=== PATIENT | male | born 1965 | race Caucasian/White ===

== ENCOUNTER 2016-09-27 20:33 | Emergency (ER) | payer OTHER ==
[~2016-09-27] VITALS: Ht 190.5 cm; Wt 149.6 kg
[~2016-09-27 20:33] MED LIST: NO ROUTINE MEDS
--- OUTSIDE RECORDS SUMMARY | 2016-09-27 20:37 | XMS REPORT | Continuity of Care Document ---
Author Author [facility] Organization [facility] Address Unknown Phone Unavailable Support Name Relationship Address Phone PIPO MAYES MD Caregiver [address] [place] [address] [phone] ELISABETH STEPHENS FACS, MD Caregiver [address] [place] [address] [place] [address] [phone] LILIANA BLAIR Next Of Kin [address] [place] [address] Insurance Providers Payer Name Policy Number Subscriber Name Relationship [facility] [id number] Jasmeet Blair 18 Self Advance Directives Directive Response Recorded Date/Time Dr Portillo Resuscitation Status Full Code 03/28/14 11:28am Resuscitation Documents on File No 03/29/14 7:44pm Chief Complaint and Reason for Visit Chief Complaint C SCOPE/TAKE DOWN OF END COLOSTOMY/REPAIR OF SAMMY Reason for Visit Colostomy care Colostomy hernia Problems Medical Problems Problem Onset Date Status Sepsis Unknown Active Leukocytosis Unknown Active Perirectal cellulitis Unknown Active Obesity, morbid, BMI 40.0-49.9 Unknown Active Hyponatremia Unknown Active Cellulitis of perineum Unknown Active Colostomy care 04/03/2014 Active Colostomy hernia 04/03/2014 Active Medications Medication Dose Route Sig Days/Qty Instructions Order Date Discontinued Date Status Ibuprofen 600 Mg PO Every 6 Hours PRN PAIN 14 Days 04/03/14 Active Social History Social History Problem Response Recorded Date/Time Smoking Status Never smoker 10/08/2013 12:10pm Chewing Tobacco Status No 03/28/2014 11:02am Hx Substance Use No 03/28/2014 11:02am Hx Alcohol Use Y OCC 03/28/2014 11:02am Has the pt used tobacco in the last 12 months No 03/29/2014 7:45pm Hospital Discharge Instructions Instructions: Care Instructions: Reason for Hospitalization: takedown colostomy and repair stomal hernia I was in the hospital because (patient own words): Colostomy takedown and hernia repair Discharge Diet: Regular Discharge Activity: Do not drive, operate machinery for 24 hours after surgery or while taking pain medication. No lifting more than 25 pounds for 4 weeks. Follow Up Appointments: Follow up with Dr. Stephens on April 10, 2014 at 3:15 pm Patient Instructions: May Shower No Bathing or swimming. Wound/Incision Care: Leave incision open to air. Reapply dressing as needed. Give FAUSTINO instructions Notify Physician If: 1. Call your surgeon if you are having problems relating to your surgery at [phone]. 2. Problems such as: Temp above 101.5 degrees You develop redness, excessive swelling of the incision, increasing pain or excessive foul smelling drainage. 3. If the office is closed, call [facility] at [phone] and have your Surgeon paged. Condition at time of discharge: Good Plan of Care Discharge Date 04/03/14 1:06pm Disposition 01 DISCHARGED HOME, SELF-CARE Instructions/Education Provided DI for Floyd-Saavedra Drains Prescriptions See Medications Section Functional Status Query Response Date Recorded Physical Hygiene Self April 03, 2014 12:05pm Disabilities None April 03, 2014 12:05pm Devices Used None April 03, 2014 12:05pm Dressing Self April 03, 2014 12:05pm Ambulation Self April 03, 2014 12:05pm Diet Self April 03, 2014 12:05pm Mental Status Alert Oriented April 03, 2014 12:05pm Disabilities None April 03, 2014 12:05pm Devices Used None April 03, 2014 12:05pm Physical Hygiene Self April 03, 2014 12:05pm Dressing Self April 03, 2014 12:05pm Ambulation Self April 03, 2014 12:05pm Diet Self April 03, 2014 12:05pm Allergies, Adverse Reactions, Alerts Allergen Type Severity Reaction Status Last Updated Penicillin Allergy Unknown RASH Active 03/28/14 Immunizations Name Given Type Hx Influenza Vaccination Y MARCH 2014 Historical Hx Pneumococcal Vaccination No Historical Hx Influenza Vaccination Y MARCH 2014 Historical Vital Signs Acute Vital Signs Vital Response Date/Time Temperature (Fahrenheit) 98.9 deg F (96.8 - 99.1) Temperature (Calculated Celsius) 37.30477 degrees C (36.0 - 37.3) Temperature Source Oral Pulse Rate (adult) 80 bpm (60 - 100) Respiratory Rate 16 breaths/min (10 - 20) O2 Sat by Pulse Oximetry 94 % (90 - 100) Oxygen Delivery Method Room Air Blood Pressure 116/82 mm Hg Blood Pressure Source Automatic Cuff Height 6 ft 3 in Weight 295 lb Body Mass Index 36.0 kg/m^2 Results Test Source Date Result Interp. Ref. Range Comments Alanine Aminotransferase (ALT/SGPT) October 16, 2013 5:15am 46 U/L N 21- 72 Albumin October 16, 2013 5:15am 1.9 G/DL L 3.5-5.0 Albumin/Globulin Ratio October 16, 2013 5:15am 0.7 RATIO L 1.1-2.2 Alkaline Phosphatase October 16, 2013 5:15am 61 U/L N 38-126 Anion Gap April 03, 2014 4:55am 8 MEQ/L N 5-15 Arterial Blood Base Excess October 12, 2013 4:30am 0.2 MMOL/L N -2.0-2.0 Arterial Blood HCO3 October 12, 2013 4:30am 24 MEQ/L N 22-26 Arterial Blood Oxygen Saturation October 12, 2013 4:30am 94.0 % L 95.0- 98.0 Arterial Blood Partial Pressure CO2 October 12, 2013 4:30am 33 MMHG L 34- 45 Arterial Blood Total CO2 October 12, 2013 4:30am 24.5 MEQ/L N 23-27 Arterial Blood pH October 12, 2013 4:30am 7.460 H 7.350-7.450 Arterial Blood pO2 at Patient Temp October 12, 2013 4:30am 66 MMHG L 80- 100 Aspartate Amino Transf (AST/SGOT) October 16, 2013 5:15am 29 U/L N 17-59 BUN/Creatinine Ratio April 03, 2014 4:55am 6 RATIO N 6-26 Band Neutrophils # March 30, 2014 4:45am 0.1 T/MM3 - Band Neutrophils % March 30, 2014 4:45am 1.0 % N 0-6 Basophils # (Auto) April 03, 2014 4:55am 0.0 T/MM3 N 0-0.2 Basophils (%) (Auto) April 03, 2014 4:55am 0.7 % N 0-2 Blood Gas Oxygen Percent Given October 11, 2013 7:17am 70 - Blood Urea Nitrogen April 03, 2014 4:55am 7.0 MG/DL DL 9-20 Calcium Level April 03, 2014 4:55am 9.3 MG/DL N 8.4-10.2 Calculated Osmolality April 03, 2014 4:55am 266 MOSM/KG N 261-280 Carbon Dioxide Level April 03, 2014 4:55am 26 MEQ/L N 22-30 Chemistry Specimen Hemolysis April 03, 2014 4:55am < 15 0-25 0-25: No Hemolysis.26-70: Slight Hemolysis - can falsely elevate K and Urine Protein. 71-285: Moderate Hemolysis - can falsely elevate K, Troponin I, CA 19-9, PTH, CSF GLucose, and Urine Protein, and can falsely decrease Phenytoin. 286-999: Gross Hemolysis - can falsely elevate K, Troponin I, CA 19-9, PTH, CSF Glucose, and Urine Protine, and can falsely decrease Phenytoin. Recommend specimen recollection. Chloride Level April 03, 2014 4:55am 105 MEQ/L N 98-107 Creatinine April 03, 2014 4:55am 1.1 MG/DL DN 0.8-1.5 Eosinophils # (Auto) April 03, 2014 4:55am 0.4 T/MM3 N 0-0.5 Eosinophils # (Manual) October 17, 2013 4:40am 0.3 T/MM3 N 0-0.5 Eosinophils % (Manual) October 17, 2013 4:40am 2.0 % N 0-4 Eosinophils (%) (Auto) April 03, 2014 4:55am 6.7 % H 0-4 Globulin October 16, 2013 5:15am 2.8 G/DL N 2.4-3.6 Glomerular Filtration Rate Calc April 03, 2014 4:55am 71 - Glucometer October 20, 2013 1:01pm 122 mg/dL H 75-110 Glucose Level April 03, 2014 4:55am 92 MG/DL N 75-110 Hematocrit April 03, 2014 4:55am 41.4 % N 41-53 Hemoglobin April 03, 2014 4:55am 13.0 GM/DL L 13.5-17.5 Hemoglobin A1c October 09, 2013 4:35am 5.2 % L 6-7 <6.0 NON-DIABETIC RANGE6.0-7.0 ADA THERAPEUTIC RANGE >7.0 ACTION SUGGESTED Hypochromasia October 11, 2013 4:00am 1+ - Icterus Index April 03, 2014 4:55am < 2 0-7 Immature Granulocyte # (Auto) April 03, 2014 4:55am 0.01 T/MM3 N 0.00- 0.03 Immature Granulocyte % (Auto) April 03, 2014 4:55am 0.2 % N 0.0-0.5 Lymphocytes # (Auto) April 03, 2014 4:55am 1.4 T/MM3 N 1-4.8 Lymphocytes # (Manual) March 30, 2014 4:45am 0.1 T/MM3 L 1-4.8 Lymphocytes % (Manual) March 30, 2014 4:45am 1.0 % L 23-45 Lymphocytes (%) (Auto) April 03, 2014 4:55am 22.4 % L 23-45 Magnesium Level October 16, 2013 5:15am 2.2 MG/DL N 1.6-2.3 Mean Corpuscular Hemoglobin April 03, 2014 4:55am 25.7 UUG L 26-34 Mean Corpuscular Hemoglobin Concent April 03, 2014 4:55am 31.4 GM/DL N 31-37 Mean Corpuscular Volume April 03, 2014 4:55am 81.8 UM3 N 80-100 Mean Platelet Volume April 03, 2014 4:55am 9.4 UM3 N 9.4-12.4 Monocytes # (Auto) April 03, 2014 4:55am 0.6 T/MM3 N 0-0.8 Monocytes # (Manual) March 30, 2014 4:45am 0.3 T/MM3 N 0-0.8 Monocytes % (Manual) March 30, 2014 4:45am 3.0 % N 0-9.0 Monocytes (%) (Auto) April 03, 2014 4:55am 9.6 % H 0-9.0 Neutrophils # (Auto) April 03, 2014 4:55am 3.7 T/MM3 N 1.8-7.7 Neutrophils # (Manual) March 30, 2014 4:45am 8.8 T/MM3 H 1.8-7.7 Neutrophils % (Manual) March 30, 2014 4:45am 95.0 % H 33-66 Neutrophils (%) (Auto) April 03, 2014 4:55am 60.4 % N 33-66 Ovalocytes October 11, 2013 4:00am 1+ - Oxygen Delivery Method (LAB) October 12, 2013 4:30am Room air - Platelet Count April 03, 2014 4:55am 223 T/MM3 N 130-400 Platelet Evaluation (Diff) October 11, 2013 4:00am Few - Poikilocytosis October 11, 2013 4:00am 1+ - Potassium Level April 03, 2014 4:55am 4.1 MEQ/L N 3.6-5 Prealbumin October 18, 2013 5:05am 8.8 MG/DL DL 17.6-36.0 Procalcitonin October 10, 2013 4:15am 33.06 NG/ML PH - PCT </=0.5 ng/mL - sepsis not likely;PCT >0.5 and </=2 ng/mL - sepsis possible; PCT >2 ng/mL - sepsis likely; PCT >/=10 ng/mL - systemic inflammatory response - sepsis or septic shock highly indicated. Prothromb Time International Ratio October 18, 2013 5:05am 1.28 H 0.86- 1.10 THERAPUTIC RANGE=2.00-3.00 FOR ANTI-THROMBOSIS THERAPUTIC RANGE=2.50- 3.50 FOR IMPLANTED VALVE RDW Standard Deviation April 03, 2014 4:55am 46.6 FL N 36.9-50.2 Random Gentamicin Level October 20, 2013 4:30am < 0.6 UG/ML 0-2 Red Blood Count April 03, 2014 4:55am 5.06 M/MM3 N 4.50-5.90 Sodium Level April 03, 2014 4:55am 139 MEQ/L N 134-144 Thyroid Stimulating Hormone (TSH) October 08, 2013 9:45am 2.30 MIU/L N 0.47-4.68 COMMENT BLOOD IN LAB Total Bilirubin October 16, 2013 5:15am 0.20 MG/DL N 0.20-1.30 Total Protein October 16, 2013 5:15am 4.7 G/DL L 6.3-8.2 Toxic Vacuolation October 08, 2013 9:15am 2+ - Turbidity April 03, 2014 4:55am < 20 0-20 Urine Bacteria October 08, 2013 4:28pm Trace H - Has specimen been collected/obtained? Y Urine Bilirubin October 08, 2013 4:28pm 1+ H - ICTO TEST NEGATIVE LB Urine Blood October 08, 2013 4:28pm 1+ H - Has specimen been collected/ obtained? Y Urine Collection Type October 08, 2013 4:28pm [place] - Has specimen been collected/obtained? Y Urine Color October 08, 2013 4:28pm [place] - Has specimen been collected/obtained? Y Urine Glucose (UA) October 08, 2013 4:28pm Negative - Has specimen been collected/obtained? Y Urine Ketones October 08, 2013 4:28pm Trace H - Has specimen been collected/obtained? Y Urine Leukocyte Esterase October 08, 2013 4:28pm Negative - Has specimen been collected/obtained? Y Urine Nitrite October 08, 2013 4:28pm Negative - Has specimen been collected/obtained? Y Urine Protein October 08, 2013 4:28pm 1+ H - Has specimen been collected/ obtained? Y Urine RBC October 08, 2013 4:28pm 0-1 /HPF - Has specimen been collected/obtained? Y Urine Specific [place] October 08, 2013 4:28pm 1.015 - Has specimen been collected/obtained? Y Urine Turbidity October 08, 2013 4:28pm Clear - Has specimen been collected/obtained? Y Urine Urobilinogen October 08, 2013 4:28pm >=8.0 EU/DL H - Has specimen been collected/obtained? Y Urine WBC October 08, 2013 4:28pm 0-1 /HPF - Has specimen been collected/obtained? Y Urine pH October 08, 2013 4:28pm 6.0 - Has specimen been collected/ obtained? Y Vancomycin Level Trough October 16, 2013 5:40pm 20.76 UG/ML H 15-20 Venous Blood Lactate October 08, 2013 9:15am 1.7 MMOL/L N 0.6-2.2 Vitamin B12 Level October 08, 2013 9:45am 236 PG/ML L 239-931 COMMENT BLOOD IN LAB White Blood Count April 03, 2014 4:55am 6.1 T/MM3 N 4.5-11.0 Blood Culture Blood October 08, 2013 9:15am NO GROWTH AFTER 5 DAYS Gram Stain Perineum October 09, 2013 6:30pm Gram Stain Buttock-Right October 09, 2013 3:15pm Procedures No known history of procedures. Encounters Encounter Location Date/Time Discharged Inpatient [facility] 03/29/14 11:40am Recent Diagnosis Colostomy care Colostomy hernia
--- OUTSIDE RECORDS SUMMARY | 2016-09-27 20:37 | XMS REPORT | Continuity of Care Document ---
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 Visit Date/Time Discharge Status Pt. Type Provider Facility Loc./Unit Complaint [id number] 10/20/2013 15:56:00 2013 15:36:00 DIS Inpatient Adrián Lau MD [facility] on [address]
[2016-09-27 20:51] LABS: BLOOD, URINE 3+ (NEGATIVE); COLOR,URINE PINK (YELLOW); LEUKOCYTE ESTERASE ,URINE NEGATIVE (NEGATIVE); NITRITE,URINE NEGATIVE (NEGATIVE); UROBILINOGEN,URINE 0.2 EU/DL (NORMAL)
[2016-09-27] MEDS ORDERED: NORMAL SALINE 1,000 ML IV ONE (20:54)
[2016-09-27] MEDS ORDERED: KETOROLAC 30mg/ml INJECTION IV ONE (21:00)
[2016-09-27] MEDS ORDERED: ONDANSETRON 4mg/2ml INJECTION IV ONE (21:00)
[2016-09-27] MEDS ORDERED: TAMSULOSIN 0.4 MG CAPSULE PO ONE (21:00)
--- NOTE | 2016-09-27 21:02 | NUR ---
CT PT TO CT [facility].
--- NOTE | 2016-09-27 21:12 | NUR ---
CT PT RETURNED.
[2016-09-27 21:13] LABS: WBC,URINE 0-1 /HPF (0-5)
[2016-09-27 21:15] LABS: BACTERIA,URINE TRACE (NEGATIVE)
--- NOTE | 2016-09-27 21:15 | NUR ---
DR DR MELARA AT BEDSIDE.
--- OUTSIDE RECORDS SUMMARY | 2016-09-27 21:15 | XMS REPORT | Continuity of Care Document ---
Author Author [facility] Organization [facility] Address Unknown Phone Unavailable Support Name Relationship Address Phone PIPO MAYES MD Caregiver [address] [place] [address] [phone] ELISABETH STEPHENS FACS, MD Caregiver [address] [place] [address] [place] [address] [phone] LILIANA BLAIR Next Of Kin [address] [place] [address] Insurance Providers Payer Name Policy Number Subscriber Name Relationship [facility] [id number] Jasmeet Blair 18 Self Advance Directives Directive [...] having problems relating to your surgery at [phone]. 2. Problems such as: Temp above 101.5 degrees You develop redness, excessive swelling of the incision, increasing pain or excessive foul smelling drainage. 3. If the office is closed, call [facility] at [phone] and have your Surgeon paged. Condition at [...] F (96.8 - 99.1) Temperature (Calculated Celsius) 37.85757 degrees C (36.0 - 37.3) Temperature Source [...] Y Urine Color October 08, 2013 4:28pm [place] - Has specimen been collected/obtained? Y Urine [...] Has specimen been collected/obtained? Y Urine Specific [place] October 08, 2013 4:28pm 1.015 - Has [...] procedures. Encounters Encounter Location Date/Time Discharged Inpatient [facility] 03/29/14 11:40am Recent Diagnosis Colostomy care Colostomy hernia
--- OUTSIDE RECORDS SUMMARY | 2016-09-27 21:15 | XMS REPORT | Continuity of Care Document ---
Author Author [facility] Organization [facility] Address Unknown Phone Unavailable Allergies Active Description [...] Status Pt. Type Provider Facility Loc./Unit Complaint [id number] 10/20/2013 15:56:00 2013 15:36:00 DIS Inpatient Adrián Lau MD [facility] on [address]
--- NOTE | 2016-09-27 21:20 | NUR ---
IVL/MEDS PT GIVEN INSTRUCTION REGARDING NS, ZOFRAN AND TORADOL. UNDERSTANDING VERBALIZED.
--- NOTE | 2016-09-27 21:22 | ERPDOC ---
Departure Disposition Decision Date: Sep 27, 2016 Disposition Decision Time: 22:05 Disposition: 01 DISCHARGED HOME, SELF-CARE Impression Impression Impression: Primary Impression: Ureterolithiasis Additional Impression: Hematuria Severity: Moderate Condition: Improved Seen By: Physician only Referrals: PIPO MAYES MD (Family) 1 Week Patient Instructions: Kidney Stones (ED) Problems/Meds/Labs Reviewed?: Yes Medications reviewed and manag: Yes Additional Instructions: You have a kidney stone that has almost passed. Take naproxen for pain and the flomax to help pass the stone. Use the norco only for pain not controlled with naproxen. Take zofran if needed for nausea. Drink lots of fluids and follow up with your doctor. Follow up care ordered?: Yes Mental Status: Alert, Oriented Scripts Tamsulosin HCl (Flomax) 0.4 Mg Capsule 0.4 MG PO HS for 14 Days, #14 CAP Take 1 capsule, by mouth, one time a day at BEDTIME. Prov: OCTOBERCARO DO 09/27/16 HPI - Male General Chief Complaint: Flank Pain Stated Complaint: LOWER LEFT BACK PAIN,FREQUENT URINATION Time Seen by Provider: 20:52 Source: patient Exam Limitations: no limitations HPI - Male Initial Comments 51yo man presents to the ER tonight for left flank pain. [facility] drinking diet coke and juice, so he drank a beer to flush himself out. This improved his urine, but now he has left flank pain with radiation into his groin. Pt has never had pain like this. 2 weeks ago, pt strained his back while moving furniture. He took some left over muscle relaxers, which helped his sx. He last took these 3-4 days ago, because sx were markedly improved. Occurred At: home Onset: Rapid Duration: 6-12 hrs Pain Scale: Now & Worst: 8/10 Severity/Quality: sharpness, stabbing Location: left flank Radiation: groin Activities at Onset: none Prior Genitourinary Problems: none Modifying Factors: IMPROVES WITH: lying down, other (Drinking), rest, WORSE WITH: movement, palpation Associated Symptoms: diaphoresis, nausea/vomiting, urinary frequency, DENIES: abdominal pain, dysuria, fever/chills, loss of bladder control, lower back pain , lumps, mass, nocturia, polyuria, swelling, syncope Hx of Similar Symptoms: No Allergies: Coded Allergies: Penicillins (Unverified Allergy, Unknown, RASH, 05/27/15) Past History Past Medical History Pt denies signifigant PMH Metabolic: other Integumentary: eczema, rashes Surgical History Joint: other Family History Family PMH: FOUND: CVA, hypertension Vaccines Hx Influenza Vaccination: Yes (MARCH 2014) Hx Pneumococcal Vaccination: No Social History Sexuality: other Review of Systems General: frequency, hematuria All other Systems All Other Systems: Reviewed and Negative Physical Exam General General Nourishment: well nourished, well developed, appears stated age, no acute distress, adult, obese General Body Habitus: well groomed Vitals and Pain First Documented Vital Signs Date Time Temp Pulse Resp B/P Pulse Ox O2 Delivery O2 Flow Rate FiO2 09/27/16 20:50 99.4 92 16 149/105 96 Room Air Weight: Kilograms: 149.600 Height (feet): 6 Height (inches): 3.00 Triage Pain Scale: RN VS reviewed by Provider: Yes Normal Exams: Head: Normocephalic w/o trauma Eyes: Pupils are PERRLA w/ EOMI, No scleral icterus, irritation ENMT: No facial trauma, nasal exudates, pharyngeal erythema Neck: Full range of motion, without adenopathy, JVD Lymphatic: No lymphadenopathy Musculoskeletal: No tenderness, or deformity noted, good range of motion Integumentary: No rashes, hives, or bruising noted Neurologic: Patient is alert, and oriented Psychiatric: Patient exhibits, appropriate attention Respiratory (brief) Respiratory: FOUND: clear all tapia, equal bilaterally, symmetrical, NOT FOUND : rales, wheezes Cardiovascular (brief) Cardiac: FOUND: regular rate, regular rhythm, NOT FOUND: click, gallop, murmur , pedal edema, peripheral edema, rub Capillary Refill: <2 sec Pulses: all distal extremities, equal, strong Abdomen (brief) Abdominal Brief: FOUND: bowel normo active x4, soft, NOT FOUND: distended, hepatosplenomegaly, pulsatile mass, tender Comments Oziel's pos on left. Differential Diagnoses Considering: Hematuria, Hernia, Pyelonephritis, Renal Colic, Ureteral Stone, UTI Progress Results/Orders Orders Procedure Category Date Status Time UA, LAB 09/27/16 Complete Dip&Micro(Complete) & 20:42 Cbc W/Auto LAB 09/27/16 Complete Diff-Reflex Manual 20:54 Bmp - Basic Metabolic LAB 09/27/16 Complete Panel 20:54 Ct Renal W/O Contrast CT 09/27/16 Taken 20:54 Iv Lock (Ed Only) EDM 09/27/16 Transmitted 20:54 Normal Saline (Normal PHA 09/27/16 Complete Saline Iv) 20:54 Ketorolac (Toradol) PHA 09/27/16 Complete 21:00 Tamsulosin (Flomax PHA 09/27/16 Complete 0.4 Mg) 21:00 Ondansetron Inj PHA 09/27/16 Complete (Zofran) 21:00 Hydrocodone/Apap PHA 09/27/16 Complete 5/325 Prepack (Verbena 5 22:15 Ondansetron Odt PHA 09/27/16 Complete (Prepack) (Zofran Odt 22:15 Lab Results Laboratory Tests Test 09/27/16 20:42 09/27/16 21:21 Urine Collection Type Voided-not cc-midstr Urine Color [place] Urine Turbidity Clear Urine pH 6.5 Urine Specific [place] <=1.005 Urine Protein Negative Urine Glucose (UA) Negative Urine Ketones Negative Urine Blood 3+ Urine Nitrite Negative Urine Bilirubin Negative Urine Urobilinogen 0.2EU/DL Urine Leukocyte Esterase Negative Urine RBC 10-20/HPF Urine WBC 0-1/HPF Urine Bacteria Trace Urine Culture Indicated Cult not indicated White Blood Count 6.1T/MM3 Red Blood Count 5.27M/MM3 Hemoglobin 17.2GM/DL Hematocrit 49.6% Mean Corpuscular Volume 94.1UM3 Mean Corpuscular Hemoglobin 32.6UUG Mean Corpuscular Hemoglobin Concent 34.7GM/DL RDW Standard Deviation 41.9FL Platelet Count 176T/MM3 Mean Platelet Volume 9.2UM3 Immature Granulocyte % (Auto) 0.3% Neutrophils (%) (Auto) 63.0% Lymphocytes (%) (Auto) 27.7% Monocytes (%) (Auto) 7.4% Eosinophils (%) (Auto) 0.8% Basophils (%) (Auto) 0.8% Absolute Immature Granulocyte (auto 0.02T/MM3 Absolute Neutrophils (auto) 3.9T/MM3 Absolute Lymphocytes (auto) 1.7T/MM3 Absolute Monocytes (auto) 0.5T/MM3 Absolute Eosinophils (auto) 0.1T/MM3 Absolute Basophils (auto) 0.1T/MM3 Turbidity < 20 Sodium Level 142MEQ/L Potassium Level 3.8MEQ/L Chloride Level 104MEQ/L Carbon Dioxide Level 21MEQ/L Anion Gap 17MEQ/L Blood Urea Nitrogen 12.0MG/DL Creatinine 1.2MG/DL Glomerular Filtration Rate Calc 64 BUN/Creatinine Ratio 10RATIO Glucose Level 98MG/DL Calculated Osmolality 273MOSM/KG Calcium Level 10.0MG/DL Icterus Index < 2 Chemistry Specimen Hemolysis 34 Medications Current ED Medications Sodium Chloride (Normal Saline IV) 1,000 ml @ 0 mls/hr Q0M ONCE IV Last administered on 09/27/16 21:27; Start 09/27/16 at 20:54; Stop 09/27/16 at 20:55; Status DC Ketorolac Tromethamine (Toradol) 30 mg O ONCE IV Last administered on 21:30; Start 09/27/16 at 21:00; Stop 09/27/16 at 21:01; Status DC Tamsulosin HCl (FLOMAX 0.4 mg) 0.4 mg O ONCE PO Last administered on 09/27/16 21:30; Start 09/27/16 at 21:00; Stop 09/27/16 at 21:01; Status DC Ondansetron HCl (Zofran) 4 mg O ONCE IV Last administered on 09/27/16 21:28; Start 09/27/16 at 21:00; Stop 09/27/16 at 21:01; Status DC Acetaminophen/ Hydrocodone Bitart (NORCO 5 (PrePack)) 1 pack O ONCE SENT HOME Last administered on 09/27/16 22:22; Start 09/27/16 at 22:15; Stop 09/27/16 at 22: 16; Status DC Ondansetron HCl (ZOFRAN ODT (PrePack)) 1 pack O ONCE SENT HOME Last administered on 09/27/16 22:22; Start 09/27/16 at 22:15; Stop 09/27/16 at 22:16; Status DC Progress Progress Pt with nephrolithiasis. Discussed dx, prognosis, and treatment with pt. F/u with PCM for referral to urology if necessary. Pt voiced understanding of treatment goals. CT CT : CT: Renal no contrast Interpretation: Abnormal (3mm stone at UVJ on left; mild hydronephrosis), Reviewed Written Report CARO MELARA DO Sep 27, 2016 21:22
[2016-09-27 21:30] LABS: BASOPHILS # (AUTO) 0.1 T/MM3 (0-0.2); BASOPHILS % (AUTO) 0.8 % (0-2); EOSINOPHILS # (AUTO) 0.1 T/MM3 (0-0.5); EOSINOPHILS % (AUTO) 0.8 % (0-4); HCT - HEMATOCRIT 49.6 % (41-53); HGB - HEMOGLOBIN 17.2 GM/DL (13.5-17.5); IMMATURE GRANULOCYTE # (AUTO) 0.02 T/MM3 (0.00-0.03); IMMATURE GRANULOCYTE % (AUTO) 0.3 % (0.0-0.5); LYMPHOCYTES # (AUTO) 1.7 T/MM3 (1-4.8); LYMPHOCYTES % (AUTO) 27.7 % (23-45); MEAN CORPUSCULAR HGB 32.6 UUG (26-34); MEAN CORPUSCULAR HGB CONC(MCHC 34.7 GM/DL (31-37); MEAN CORPUSCULAR VOLUME 94.1 UM3 (80-100); MEAN PLATELET VOLUME 9.2 UM3 (9.4-12.4); MONOCYTES # (AUTO) 0.5 T/MM3 (0-0.8); MONOCYTES % (AUTO) 7.4 % (0-9.0); NEUTROPHILS #(AUTO)-ABSOLUTE 3.9 T/MM3 (1.8-7.7); RED BLOOD COUNT 5.27 M/MM3 (4.50-5.90); WBC - WHITE BLOOD COUNT 6.1 T/MM3 (4.5-11.0)
[2016-09-27 21:36] LABS: ANION GAP 17 MEQ/L (5-15); BUN/CREATININE RATIO 10 RATIO (6-26); CHLORIDE 104 MEQ/L (98-107); CO2 - CARBON DIOXIDE 21 MEQ/L (22-30); CREATININE 1.2 MG/DL (0.8-1.5); GLOMERULAR FILTRATION RATE 64; GLUCOSE 98 MG/DL (75-110); POTASSIUM 3.8 MEQ/L (3.6-5); SODIUM 142 MEQ/L (134-144)
[2016-09-27] MEDS ORDERED: TAMS-1 PO (22:07)
[2016-09-27] MEDS ORDERED: ONDANSETRON ODT 4mg #3 (PrePack) SENT HOME ONE (22:15)
[2016-09-27] MEDS ORDERED: HYDROCODONE/APAP 5/325 (PrePack) SENT HOME ONE (22:15)
[2016-09-27 22:26] VITALS: BP 131/74; PULSE 78; RESP 12; TEMP 98.7; O2SAT 94
--- NOTE | 2016-09-27 22:26 | NUR ---
DEPART PT AMBULATORY TO LOBBY ACCOMPANIED BY SISTER.
--- NOTE | 2016-09-28 08:13 | DI ---
Indication: ITS.REASON: Flank pain PROCEDURE: CT RENAL W/O CONTRAST: Encounter: Initial Comparison: CT abdomen and pelvis dated October 20, 2013 Technique: Axial CT images were performed through the abdomen and pelvis without intravenous contrast. Coronal and sagittal two-dimensional reformats. Automated Exposure Control and Iterative Reconstruction dose reducing techniques were utilized. Findings: The lung bases are grossly clear. Liver shows mild fatty infiltration without contour deforming mass. The gallbladder, spleen, pancreas, adrenal glands and right kidney are within normal limits. No right renal or ureteral stones. There is a nonobstructing 2 mm stone at left ureterovesicular junction with mild hydroureter and hydronephrosis. Some perinephric stranding surrounding the left kidney. No abdominal or pelvic lymphadenopathy. Surgical anastomosis in the sigmoid area. Bladder is grossly normal. Appendix is normal. Fat-containing ventral hernias. Bone windows show probable bone islands in the left L5 vertebra and left aspect of the sacrum along with L1. Impression: Obstructing 2 mm left distal ureteral stone at the ureterovesicular junction. There is a preliminary report by [employer]. .
== END 2016-09-27 22:26 | disposition home or self-care (01) ==
LOC: ED 20:33
DX: N13.2 Hydronephrosis with renal and ureteral calculous obstruction (principal)
CPT/HCPCS: 74176; 80048; 81001; 85025; 96361; 96374; 96375; 99284; J1885; J2405; J7030

== ENCOUNTER → 2016-10-02 | Outpatient (CLI) | payer OTHER ==
[~2016-10-02] MED LIST changes: +TAMS-1 PO
--- NOTE | 2016-10-05 16:10 | DI ---
EXAM: CT RENAL W/O CONTRAST LOCATION OF DICTATION: [place] HISTORY: ITS.REASON: N20.0 CALCULUS OF KIDNEY COMPARISON: September 27, 2016. TECHNIQUE: Multiple contiguous axial images were obtained of the abdomen and pelvis without contrast. Thin sections were obtained through the kidneys and ureters. Automated Exposure Control and Iterative Reconstruction dose reducing techniques were utilized. FINDINGS: CT ABDOMEN LUNG BASES: Unremarkable LIVER: There is suggested diffuse fatty infiltration of the liver. SPLEEN: Unremarkable. GALLBLADDER: Unremarkable. PANCREAS: Unremarkable ADRENAL GLANDS: Unremarkable. KIDNEYS: The right and left kidneys are normal without hydronephrosis or obstructing calculus. AORTA: Unremarkable. LYMPH NODES: Unremarkable. STOMACH BOWEL LOOPS: The bowel loops are normal caliber. The appendix is normal. There is a ventral abdominal hernia containing nonobstructed small bowel. There is a small adjacent Periumbilical hernia. PERITONEAL CAVITY: There is no abdominal or pelvic inflammatory mass or ascites. CT PELVIS URINARY BLADDER: There is a 3 to 4 mm calculus demonstrated at the left ureter vesicle junction which has slightly progressed from the previous study approximately 5 mm. PELVIC VISCERA: The prostate and seminal vesicles are normal. OSSEOUS STRUCTURES: There is mild spondylosis of the thoracolumbar spine. Probable bone island overlying the left L5 vertebral body. No suspicious or destructive osseous lesions. IMPRESSION: 1. Slight interval advancement of approximately 3 mm calculus overlying the left ureterovesical junction. No significant left hydronephrosis or hydroureter. 2. Diffuse fatty infiltration of the liver. 3. Ventral abdominal hernias containing nonobstructed small bowel loops. .
== END ==
LOC: IMA 15:23
PROVIDERS: ATTEND Family Medicine
DX: N20.2 Calculus of kidney with calculus of ureter (principal); K76.0 Fatty (change of) liver, not elsewhere classified; K43.9 Ventral hernia without obstruction or gangrene

== ENCOUNTER → 2016-11-04 | Outpatient (CLI) | payer OTHER ==
--- NOTE | 2016-11-04 12:38 | DI ---
Indication: ITS.REASON: M85.80 OTHER SPECIFIED DISORDERS OF BONE DENSITY/STRUCTURE PROCEDURE: NM BONE SCAN, WHOLE BODY: Encounter: Subsequent Comparison: Renal CT dated October 02, [address] abdomen/pelvis dated October 09, 2013 Technique: 26.9 mCi of Tc-99m MDP was administered intravenously. Anterior and posterior planar whole-body and spot images were obtained. FINDINGS: The scan demonstrates the expected normal biodistribution for the radiotracer. There is probable degenerative uptake seen in the shoulders, ankles and right knee. Probable mild degenerative uptake noted in the right T11 and left T12-L1 vertebral regions. There is no abnormal radiotracer uptake to suggest bony metastasis. IMPRESSION: No evidence of metastatic disease to the skeleton. .
== END ==
LOC: IMA 08:07
PROVIDERS: ATTEND Family Medicine
DX: M85.80 Other specified disorders of bone density and structure, unspecified site (principal)
CPT/HCPCS: 78306; A9503